=== PATIENT | female | born 2000 | race Caucasian/White ===

== ENCOUNTER 2019-06-17 12:01 | Emergency (ER) | payer OTHER ==
[2019-06-17] MEDS ORDERED: BENADRYL 50 MG/ML IV ONE (12:10)
[2019-06-17] MEDS ORDERED: TORAdol 30 mg Injection IV ONE (12:10)
[2019-06-17] MEDS ORDERED: Pepcid 20 MG VIAL IV ONE ×2 (12:10→12:32)
[2019-06-17] MEDS ORDERED: Sodium Chloride 0.9% 1000 ML 1,000 ML IV STA (12:10)
--- NOTE | 2019-06-17 12:24 | ERPHSYRPT ---
- History of Present Illness Time Seen by Provider: 06/17/19 12:10 Historian: patient Exam Limitations: no limitations Patient Subjective Stated Complaint: pt here for abd pain lower, was dx with colitis on sat. and was given antibotics, but has notgotten them filled Triage Nursing Assessment: pt alert, resp easy, skin w/d/p. abd soft with bs, no edema, moves all ext well Physician History: Patient was diagnosed with colitis two days ago as she was evaluated at [facility] in [place], [place] with sudden onset abdominal pain. the patient was discharged in the evening of 06/16/2019, then woke up at approximately 9 AM on with sudden onset of lower abdominal pain. It radiates from right to left lower abdomen with no specific quadrant localized. She was prescribed antibiotics from her hospital stay, but she has not started them. Timing/Duration: day(s) (2), sudden, worse (3 hours prior to coming into the emergency department) Quality: cramping Abdominal Pain Onset Location: generalized abdomen Pain Radiation: RLQ, LLQ Severity of Pain-Max: severe Severity of Pain-Current: severe Modifying Factors: Improves With: nothing Associated Symptoms: nausea, vomiting, No back, No chest pain, No diaphoresis, No diarrhea, No fever/chills, No fatigue, No headache, No heartburn, No loss of appetite, No neck pain, No rash, No shortness of breath, No syncope, No weakness Previous symptoms: same symptoms as today, recent hospitalization (06/15/2019-05/2019 at [facility]), recently treated (IV antibiotics) Allergies/Adverse Reactions: cefdinir [From [employer]] Allergy (Verified 06/17/19 12:14) Home Medications: Amitriptyline HCl 10 mg [Elavil 10 mg] 10 mg DAILY 06/17/19 [History] Sertraline HCl [Zoloft] 100 mg PO DAILY 06/17/19 [History] Hx Tetanus, Diphtheria Vaccination/Date Given: Yes Hx Influenza Vaccination/Date Given: No Hx Pneumococcal Vaccination/Date Given: No Immunizations Up to Date: Yes - Review of Systems Constitutional: No Fever, No Chills, No Fatigue Eyes: No Eye Pain, No Vision Changes Ears, Nose, & Throat: No Mouth Swelling, No Painful Swallowing Respiratory: No Cough, No Dyspnea Cardiac: No Chest Pain, No Palpitations, No Syncope Abdominal/Gastrointestinal: Abdominal Pain, Nausea, Vomiting, No Diarrhea, No Hematemesis, No Hematochezia, No Melena Genitourinary Symptoms: No Dysuria, No Frequency, No Hematuria, No Flank Pain Musculoskeletal: No Back Pain, No Neck Pain, No Myalgias Skin: No Pruritis, No Rash Neurological: No Focal Weakness, No Parasthesia Psychological: No Anxiety Endocrine: No Excessive Sweating Hematologic/Lymphatic: No Easy Bleeding, No Easy Bruising All Other Systems: Reviewed and Negative - Past Medical History Pertinent Past Medical History: Yes Neurological History: Migraines Cardiac History: Other Respiratory History: Asthma Endocrine Medical History: No Pertinent History Musculoskeletal History: Other History: Other Other Medical History: ANEMIA, HX LBP - Past Surgical History Past Surgical History: Yes Genitourinary: Kidney Surgery Musculoskeletal: Orthopedic Surgery Other Surgical History: FOOT SURGERY,kidney reflux surg,knee - Social History Smoking Status: Current every day smoker Exposure to second hand smoke: Yes Drug Use: none Patient Lives Alone: No - Female History Hx Last Menstrual Period: 12 days ago Hx Now: No - Nursing Vital Signs Nursing Vital Signs: Initial Vital Signs Temperature 98.1 F 06/17/19 12:08 Pulse Rate 65 06/17/19 12:08 Respiratory Rate 16 06/17/19 12:08 Blood Pressure 131/71 06/17/19 12:08 O2 Sat by Pulse Oximetry 98 06/17/19 12:08 Pain Scale Pain Intensity 4 - Physical Exam General Appearance: no apparent distress, alert Eye Exam: PERRL/EOMI, eyes nml inspection, No scleral icterus, No pale conjunctivae Ears, Nose, Throat Exam: pharynx normal, moist mucous membranes Neck Exam: normal inspection, non-tender, supple, full range of motion, No meningismus, No Brudzinski, No limited range of motion, No lymphadenopathy Respiratory Exam: normal breath sounds, lungs clear, airway intact, No chest tenderness, No respiratory distress, No diminished breath sounds, No accessory muscle use, No crackles/rales, No rhonchi, No wheezing, No stridor, No pleural rub Cardiovascular Exam: regular rate/rhythm, normal heart sounds, normal peripheral pulses, capillary refill <2 sec Gastrointestinal/Abdomen Exam: soft, normal bowel sounds, No tenderness, No distention, No mass, No guarding, No ecchymosis, No rebound Pelvic Exam: normal external exam, other (chaperoned by Yudy Black RN), No adnexal tenderness, No adnexal mass, No mass, No cervical motion tenderness, No vaginal bleeding, No uterine tenderness, No vaginal discharge Rectal Exam: normal exam, normal rectal tone, No hemorrhoids Back Exam: normal inspection, normal range of motion, No CVA tenderness, No vertebral tenderness, No rash Extremity Exam: normal inspection, normal range of motion, pelvis stable, No contusions, No calf tenderness, No antwan's sign, No swelling Neurologic Exam: alert, oriented x 3, cooperative, cloud engineer II-XII nml as tested, normal mood/affect, sensation nml, No motor deficits, No sensory deficit Skin Exam: normal color, warm, dry, No rash, No petechiae, No jaundice, No cyanosis Lymphatic Exam: No inguinal node tender (L), No inguinal node tender (R) SpO2 Interpretation: normal SpO2: 98 O2 Delivery: Room Air - Course Nursing assessment & vital signs reviewed: Yes - Radiology Ultrasound Exam Pelvis Ultrasound: Other (per radiologist interpretation:beers again and everted today measuring 5.6 x 2.4 x 3.1 cm. No focal solid//testicular mass. Endometrial stripe measures 1.8 mm. No endometrial cavity mass or fluid collection. Right ovary measures 3.3 x 1.6 x 2.6 cm in the left measures 2.2 x 2.2 x 2.1 cm. Again normal color perfusion and follicular cyst bilaterally. Tiny cul-de- sac fluid present the physiologic from rupture/leaking cyst. Overall impression : Tiny cul-de-sac fluid presumed physiologic. Remaining transvaginal pelvic sonogram is again negative in comparison to transvaginal ultrasound from 2018.) Ordered Tests: Active Orders 24 hr Category Date Time Status IV Insertion STAT Care 06/17/19 12:10 Active NPO (ED) STAT Care 06/17/19 12:10 Active Pelvic Exam Assist STAT Care 06/17/19 12:39 Active PELVIS TRANS VAGINAL [US] Stat Exams 06/17/19 12:39 Completed AMYLASE Stat Lab 06/17/19 12:20 Completed CBC W DIFF Stat Lab 06/17/19 12:20 Completed CMP Stat Lab 06/17/19 12:20 Completed CULTURE,URINE Stat Lab 06/17/19 13:06 Received HCG,QUALITATIVE URINE Stat Lab 06/17/19 13:06 Completed LIPASE Stat Lab 06/17/19 12:20 Completed Lactic Acid Stat Lab 06/17/19 12:27 Completed UA W/RFX UR CULTURE Stat Lab 06/17/19 13:06 Completed Wet Prep Stat Lab 06/17/19 13:40 Completed Medication Summary Discontinued Medications Generic Name Dose Route Start Last Admin Trade Name Carlos PRN Reason Stop Dose Admin Diphenhydramine HCl 50 mg 06/17/19 12:10 06/17/19 12:35 Benadryl 50 Mg/Ml IV 06/17/19 12:11 50 mg STAT ONE Administration Diphenhydramine HCl Confirm 06/17/19 12:32 Benadryl 50 Mg/Ml Administered 06/17/19 12:33 Dose 50 mg .ROUTE .STK-MED ONE Famotidine 20 mg 06/17/19 12:10 06/17/19 12:35 Pepcid 20 Mg Vial IV 06/17/19 12:11 20 mg STAT ONE Administration Famotidine Confirm 06/17/19 12:32 Pepcid 20 Mg Vial Administered 06/17/19 12:33 Dose 20 mg IV .STK-MED ONE Sodium Chloride 1,000 mls @ 999 mls/hr 06/17/19 12:10 06/17/19 12:33 Sodium Chloride 0.9% 1000 Ml IV 06/17/19 13:10 999 mls/hr .Q1H1M STA Administration Sodium Chloride Confirm 06/17/19 12:32 Sodium Chloride 0.9% 1000 Ml Administered 06/17/19 12:33 Dose 1,000 mls @ ud .ROUTE .STK-MED ONE Ketorolac Tromethamine 30 mg 06/17/19 12:10 06/17/19 12:34 Toradol 30 Mg Injection IV 06/17/19 12:11 30 mg STAT ONE Administration Ketorolac Tromethamine Confirm 06/17/19 12:32 Toradol 30 Mg Injection Administered 06/17/19 12:33 Dose 30 mg .ROUTE .STK-MED ONE Lab/Rad Data: Laboratory Result Diagrams 06/17/19 12:20 11/11/19 12:20 Laboratory Results 06/17/19 06/17/19 06/17/19 Range/Units 13:40 13:06 13:06 WBC (4.0-10.5) K/mm3 RBC (4.1-5.4) M/mm3 Hgb (12.0-16.0) gm/dl Hct (35-47) % MCV (78-100) fl MCH (26-32) pg MCHC (32-36) g/dl RDW (11.5-14.0) % Plt Count (150-450) K/mm3 MPV (6-9.5) fl Gran % (36.0-66.0) % Eos # (Auto) (0-0.5) Absolute Lymphs (auto) (1.0-4.6) Absolute Monos (auto) (0.0-1.3) Lymphocytes % (24.0-44.0) % Monocytes % (0.0-12.0) % Eosinophils % (0.00-5.0) % Basophils % (0.0-0.4) % Absolute Granulocytes (1.4-6.9) Basophils # (0-0.4) Sodium (137-145) mmol/L Potassium (3.5-5.1) mmol/L Chloride (98-107) mmol/L Carbon Dioxide (22-30) mmol/L Anion Gap (5-15) MEQ/L BUN (7-17) mg/dL Creatinine (0.52-1.04) mg/dL Estimated GFR ML/MIN Glucose (74-106) mg/dL Lactic Acid (0.4-2.0) Calcium (8.4-10.2) mg/dL Total Bilirubin (0.2-1.3) mg/dL AST (14-36) U/L ALT (0-35) U/L Alkaline Phosphatase (38-126) U/L Serum Total Protein (6.3-8.2) g/dL Albumin (3.5-5.0) g/dL Amylase (30-110) U/L Lipase (23-300) U/L Urine Color CLAUDIO (YELLOW) Urine Appearance CLOUDY (CLEAR) Urine pH 6.0 (5-6) Ur Specific [place] 1.035 (1.005-1.025) Urine Protein 30 (Negative) Urine Ketones SMALL (NEGATIVE) Urine Blood NEGATIVE (0-5) Angel/ul Urine Nitrite NEGATIVE (NEGATIVE) Urine Bilirubin SMALL (NEGATIVE) Urine Urobilinogen 2 (0-1) mg/dL Ur Leukocyte Esterase SMALL (NEGATIVE) Urine WBC (Auto) 3-5 (0-5) /HPF Urine RBC (Auto) 0-2 (0-2) /HPF U Epithel Cells (Auto) MANY (FEW) /HPF Urine Bacteria (Auto) RARE (NEGATIVE) /HPF Urine Mucus (Auto) MANY (NEGATIVE) /HPF Urine Culture Reflexed YES (NO) Urine Glucose NEGATIVE (NEGATIVE) mg/dL Urine HCG, Qual NEGATIVE (Negative) WBC (Wet Prep) Rare RBC (Wet Prep) None Seen Epi Cells (Wet Prep) Rare Bacteria (Wet Prep) Few Clue Cells (Wet Prep) None Seen Trichomonas (Wet Prep) None Seen Budding Yeast (Wet Prp) None Seen 06/17/19 06/17/19 06/17/19 Range/Units 12:27 12:20 12:20 WBC 11.2 H (4.0-10.5) K/mm3 RBC 4.29 (4.1-5.4) M/mm3 Hgb 13.1 (12.0-16.0) gm/dl Hct 39.5 (35-47) % MCV 92.1 (78-100) fl MCH 30.5 (26-32) pg MCHC 33.2 (32-36) g/dl RDW 14.2 H (11.5-14.0) % Plt Count 213 (150-450) K/mm3 MPV 11.5 H (6-9.5) fl Gran % 68.5 H (36.0-66.0) % Eos # (Auto) 0.17 (0-0.5) Absolute Lymphs (auto) 2.18 (1.0-4.6) Absolute Monos (auto) 1.17 (0.0-1.3) Lymphocytes % 19.4 L (24.0-44.0) % Monocytes % 10.4 (0.0-12.0) % Eosinophils % 1.5 (0.00-5.0) % Basophils % 0.2 (0.0-0.4) % Absolute Granulocytes 7.68 H (1.4-6.9) Basophils # 0.02 (0-0.4) Sodium 142 (137-145) mmol/L Potassium 3.5 (3.5-5.1) mmol/L Chloride 110 H (98-107) mmol/L Carbon Dioxide 22 (22-30) mmol/L Anion Gap 13.3 (5-15) MEQ/L BUN 9 (7-17) mg/dL Creatinine 0.50 L (0.52-1.04) mg/dL Estimated GFR > 60.0 ML/MIN Glucose 101 (74-106) mg/dL Lactic Acid 1.0 (0.4-2.0) Calcium 9.0 (8.4-10.2) mg/dL Total Bilirubin 0.70 (0.2-1.3) mg/dL AST 18 (14-36) U/L ALT 16 (0-35) U/L Alkaline Phosphatase 64 (38-126) U/L Serum Total Protein 6.8 (6.3-8.2) g/dL Albumin 3.8 (3.5-5.0) g/dL Amylase 55 (30-110) U/L Lipase 67 (23-300) U/L Urine Color (YELLOW) Urine Appearance (CLEAR) Urine pH (5-6) Ur Specific [place] (1.005-1.025) Urine Protein (Negative) Urine Ketones (NEGATIVE) Urine Blood (0-5) Angel/ul Urine Nitrite (NEGATIVE) Urine Bilirubin (NEGATIVE) Urine Urobilinogen (0-1) mg/dL Ur Leukocyte Esterase (NEGATIVE) Urine WBC (Auto) (0-5) /HPF Urine RBC (Auto) (0-2) /HPF U Epithel Cells (Auto) (FEW) /HPF Urine Bacteria (Auto) (NEGATIVE) /HPF Urine Mucus (Auto) (NEGATIVE) /HPF Urine Culture Reflexed (NO) Urine Glucose (NEGATIVE) mg/dL Urine HCG, Qual (Negative) WBC (Wet Prep) RBC (Wet Prep) Epi Cells (Wet Prep) Bacteria (Wet Prep) Clue Cells (Wet Prep) Trichomonas (Wet Prep) Budding Yeast (Wet Prp) - Progress Progress: improved Progress Note: 06/17/19 12:28 Reviewed medical records from [facility] from patient's admit date from 06/16/2019 through 06/17/2019. CT scan showed colitis involving the ascending, transverse, and descending colon. No free fluid or free air at this time. No signs of appendicitis, bowel shortening, or pancreatitis. The patient had increased white blood cell count at 15. Patient had improvement of oral intake with resolution of pain and she was discharged in the evening of 06/16/2019. Discharged with diagnosis of Colitis and sent prescriptions for Cipro and Flagyl. 06/17/19 13:57 Pain has significantly improved. Patient has no abdominal pain or CVA tenderness on repeat examination. Patient has no acute general surgical, gynecologic or urologic surgical issues that requires immediate specialist surgical consultation or further inpatient evaluation, monitoring and treatment. Patient will fill her medications from her hospitalization from [facility] and other symptomatic medications were sent to her pharmacy. Counseled pt/family regarding: lab results, diagnosis, need for follow-up, rad results - Departure Departure Disposition: Home Clinical Impression: Lower abdominal pain, unspecified, Colitis, Elevated blood pressure reading without diagnosis of hypertension Condition: Good Critical Care Time: No Referrals: MAX HELMS [Primary Care Provider] - 06/18/19 UCHE CAREY MD [NON-STAFF PHY W/O PRIVILEGES] - 06/20/19 ( Technical Services Coordinator for your reference) Instructions: Acute Abdomen (Belly Pain), Adult (DC), Colitis, DASH Diet Additional Instructions: Your labs did not show a cause to your abdominal pain and actually have improved from your last inpatient stay at [facility]. Your examination did not show anything new that required further specialist or surgical evaluation. Fill your medications at your pharmacy from your hospital stay and I also sent symptomatic relief medication for your pain and nausea also sent to the pharmacy also. Return immediately back to the emergency department if any worse abdominal pain, nausea vomiting, any new fevers, new back pain, new urinary symptoms, or any other concerning signs or symptoms that were not present at today's emergency room visit for immediate reevaluation in the emergency department. You were also given a medical fee clerk specialist followup resolution of your colitis. Discharge/Care Plan DAGOBERTO ALY was seen on 06/17/19 in the Emergency Room. The patient was counseled regarding Diagnosis,Lab results, Imaging studies, need for follow up and when to return to the Emergency Room. Prescriptions given: Discharge Note I have spoken with the patient and/or caregivers. I have explained the patient' s condition, diagnosis and treatment plan based on the information available to me at this time. I have answered the patient's and/or caregiver's questions and addressed any concerns. The patient and/or caregivers have as good understanding of the patient's diagnosis, condition and treatment plan as can be expected at this point. The vital signs have been stable. The patient's condition is stable and appropriate for discharge from the emergency department. The patient will pursue further outpatient evaluation with the primary care physician or other designated or consulting physician as outlined in the discharge instructions. The patient and/or caregivers are agreeable to this plan of care and follow-up instructions have been explained in detail. The patient and/or caregivers have received these instruction. The patient/and or caregivers are aware that any significant change in condition or worsening of symptoms should prompt an immediate return to this or the closest emergency department or call 911. Forms: Work/School Release Form Prescriptions: Hydrocodone/APAP 5-325 Tab^^^ [[place] 5-325 Tablet^^^] 1 tab PO Q6HPRN PRN #6 tablet MDD 6 PRN Reason: Pain Promethazine HCl 25 mg [Phenergan 25 mg] 25 mg PO Q6H PRN PRN #12 tablet PRN Reason: Nausea Etodolac 400 mg [Lodine 400 mg] 400 mg PO BID PRN PRN #20 tablet PRN Reason: Pain
[2019-06-17 12:30] LABS: Absolute Neutrophil Ct (ANC) 7.68 (1.4-6.9); BASOPHIL % 0.2 % (0.0-0.4); Basophil (Absolute #) 0.02 (0-0.4); Eosinophil % 1.5 % (0.00-5.0); Eosinophil (Absolute #) 0.17 (0-0.5); Hematocrit 39.5 % (35-47); Hemoglobin 13.1 gm/dl (12.0-16.0); Lymphocyte (Absolute #) 2.18 (1.0-4.6); Lymphocytes % 19.4 % (24.0-44.0); Mean Cell Volume 92.1 fl (78-100); Mean Corpuscular Hemoglobin 30.5 pg (26-32); Mean Corpuscular Hgb Concent. 33.2 g/dl (32-36); Mean Platelet Volume 11.5 fl (6-9.5); Monocyte (Absolute #) 1.17 (0.0-1.3); Monocytes % 10.4 % (0.0-12.0); Neutrophil % 68.5 % (36.0-66.0); Platelet Count 213 K/mm3 (150-450); Red Blood Count 4.29 M/mm3 (4.1-5.4); Red Cell Distribution Width 14.2 % (11.5-14.0); White Blood Count 11.2 K/mm3 (4.0-10.5)
[2019-06-17] MEDS ORDERED: Sodium Chloride 0.9% 1000 ML 1,000 ML ONE (12:32)
[2019-06-17] MEDS ORDERED: BENADRYL 50 MG/ML ONE (12:32)
[2019-06-17] MEDS ORDERED: TORAdol 30 mg Injection ONE (12:32)
[2019-06-17 12:40] LABS: ALBUMIN 3.8 g/dL (3.5-5.0); ALKALINE PHOSPHATASE 64 U/L (38-126); AMYLASE 55 U/L (30-110); ANION GAP 13.3 MEQ/L (5-15); BLOOD UREA NITROGEN 9 mg/dL (7-17); CHLORIDE 110 mmol/L (98-107); Carbon Dioxide 22 mmol/L (22-30); Glucose 101 mg/dL (74-106); LIPASE 67 U/L (23-300); Potassium 3.5 mmol/L (3.5-5.1); SGOT/AST 18 U/L (14-36); SGPT/ALT 16 U/L (0-35); SODIUM 142 mmol/L (137-145); Total Protein 6.8 g/dL (6.3-8.2)
[2019-06-17 13:24] LABS: Appearance CLOUDY (CLEAR); Bacteria RARE /HPF (NEGATIVE); Bilirubin SMALL (NEGATIVE); Blood NEGATIVE Ery/ul (0-5); Epithelial Cells MANY /HPF (FEW); Glucose NEGATIVE (NEGATIVE); Ketones SMALL (NEGATIVE); Leukocyte Esterase SMALL (NEGATIVE); Mucus MANY /HPF (NEGATIVE); Nitrite NEGATIVE (NEGATIVE); Protein,Urine Dip 30 (Negative); RBC 0-2 /HPF (0-2); Specific Gravity 1.035 (1.005-1.025); Urobilinogen 2 mg/dL (0-1)
--- NOTE | 2019-06-17 13:41 | XRAY ---
Indication: Lower abdomen pain. Two-dimensional transvaginal pelvic sonogram performed. Comparison: November 16, 2018. Uterus again anteverted today measuring 5.6 x 2.4 x 3.1 cm. No focal solid/cystic uterine mass. Endometrial stripe measures 1.8 mm. No endometrial cavity mass or fluid collection. Right ovary measures 3.3 x 1.6 x 2.6 cm and the left measures 2.2 x 2.2 x 2.1 cm. Again normal color perfusion and follicular cysts bilaterally. Tiny cul-de-sac fluid presumed physiologic from rupture/leaking cyst. Impression: Tiny cul-de-sac fluid presumed physiologic. Remaining transvaginal pelvic sonogram is again negative.
[2019-06-17 13:47] LABS: Bacteria Few; Clue Cells None Seen; Red Blood Cells None Seen; Trichomonas None Seen; White Blood Cells Rare; Yeast None Seen
[2019-06-17 14:26] VITALS: BP 114/73; PULSE 79; O2SAT 99
[2019-06-17 15:34] LABS: CHLAMYDIA DNA NEGATIVE; N GONORRHOEAE DNA NEGATIVE
== END 2019-06-17 14:24 | disposition home or self-care (01) ==
LOC: ED 12:01
DX: R10.31 Right lower quadrant pain (principal); R10.32 Left lower quadrant pain; K52.9 Noninfective gastroenteritis and colitis, unspecified; R03.0 Elevated blood-pressure reading, without diagnosis of hypertension
CPT/HCPCS: 36000; 36415; 76830; 80053; 81001; 82150; 83605; 83690; 84703; 85025; 87086; 87210; 87490; 87590; 96360; 96374; 96375; 99284; J1200; J1885

== ENCOUNTER 2024-12-15 13:16 | Emergency (ER) | payer MEDICAID, OTHER ==
[2024-12-15 13:53] VITALS: TEMP 97.2
[2024-12-15] MEDS ORDERED: Reglan 10 MG/2 ML ONE (14:36)
[2024-12-15] MEDS ORDERED: Hydromorphone 1 mg/ml Injection ONE (14:36)
[2024-12-15] MEDS ORDERED: Sodium Chloride 0.9% 1000 ML 1,000 ML ONE (14:37)
[2024-12-15] MEDS: Sodium Chloride 0.9% 1000 ML 1,000 ML IV STA (14:38)
[2024-12-15 14:39] LABS: Absolute Neutrophil Ct (ANC) 6.08 x10^3/uL (1.56-6.13); BASOPHIL % 0.4 % (0.1-1.2); Basophil (Absolute #) 0.04 x10^3/uL (0.01-0.08); Eosinophil % 0.2 % (0.7-5.8); Eosinophil (Absolute #) 0.02 x10^3/uL (0.04-0.36); Hematocrit 37.7 % (34.1-44.9); Hemoglobin 13.3 g/dL (11.2-15.7); IMMATURE GRAN # 0.03 x10^3u/L (0.001-0.031); IMMATURE GRAN % 0.3 % (0.001-0.429); Lymphocyte (Absolute #) 2.33 x10^3/uL (1.18-3.74); Lymphocytes % 25.3 % (19.3-51.7); Mean Cell Volume 86.5 fL (79.4-94.8); Mean Corpuscular Hemoglobin 30.5 pg (25.6-32.2); Mean Corpuscular Hgb Concent. 35.3 g/dL (32.2-35.5); Mean Platelet Volume 11.6 fL (9.4-12.3); Monocytes % 7.6 % (4.7-12.5); Neutrophil % 66.2 % (34.0-71.1); Platelet Count 243 x10^3/uL (182-369); Red Blood Count 4.36 x10^6/uL (3.93-5.22); Red Cell Distribution Width 12.4 % (11.7-14.4); White Blood Count 9.2 x10^3/uL (3.98-10.04)
[2024-12-15] MEDS: Reglan 10 MG/2 ML IV ONE (14:39)
[2024-12-15] MEDS: Hydromorphone 1 mg/ml Injection IV ONE (14:39)
[2024-12-15 14:50] LABS: ALBUMIN 4.3 g/dL (3.5-5.0); ANION GAP 16.2 MEQ/L (5-15); BILIRUBIN,TOTAL 0.8 mg/dL (0.2-1.3); Calcium 9.3 mg/dL (8.4-10.2); Creatinine 1 0.46 mg/dL (0.52-1.04); EST GLOMERULAR FILTRATION RATE 136.1 ML/MIN; Total Protein 7.1 g/dL (6.3-8.2)
--- NOTE | 2024-12-15 16:39 | XRAY ---
CLINICAL HISTORY: abdominal pain COMPARISON: No prior studies available for comparison. TECHNIQUE: CT of the abdomen and pelvis was performed with contrast, with the following protocol: axial images, and reconstructed coronal and sagittal images. 80 ml sivoue intravenous contrast was administered. One of the following dose reduction techniques was utilized for this exam: Automated exposure control, adjustment of the mA and/or kV according to patient size, and use of iterative reconstruction. CTDI: 4.9 DLP: 505.98 FINDINGS: Abdomen: Liver: Normal in size, shape, and density. No focal lesions, cysts, or masses were identified. Hepatic vasculature and biliary ducts are unremarkable. Gallbladder and Biliary System: The gallbladder is normal in size and shape. No wall thickening, pericholecystic fluid, or gallstones were identified. The common bile duct is normal in caliber without dilation. Pancreas: The pancreatic head, body, and tail are visualized and appear normal in size and density. No pancreatic masses or calcifications were noted. The pancreatic duct is not dilated. Spleen: Normal in size, shape, and density. No splenic lesions or masses were identified. Appendix: The appendix is normal in size without darcy-appendiceal fat stranding and without an appendicolith. No evidence of appendiceal abscess or perforation. Kidneys and Adrenal Glands: Both kidneys are normal in size, shape, and position. Cortical thickness is within normal limits. No renal calculi or hydronephrosis. Adrenal glands are unremarkable with no evidence of masses or hyperplasia. Pelvis: Urinary Bladder: Normal in contour and wall thickness. No intraluminal lesions identified. Uterus: Normal in size and contour. No masses or abnormal thickening. Ovaries: Slightly prominent yet no masses Peritoneal and Retroperitoneal Structures: No free fluid or abnormal fluid collections were identified within the abdomen or pelvis. No lymphadenopathy was noted. Bowel: mild mural thickening along the descending and splenic flexure colon with no stranding or localized fluid collection small diverticula along the descending colon with no signs of inflammation. The visualized bowel loops are normal in caliber with no obstruction. Bones and Soft Tissues: Pelvic bones and soft tissues are unremarkable. No fractures or abnormal masses were identified. Left gluteal subcutaneus dense soft tissue clacification is seen, probably changes due to previous local injection. IMPRESSION: 1. No evidence of acute intra-abdominal pathology. 2. Mild mural thickening along the descending colon and splenic flexure colon, with no pericolic stranding or localized fluid collection, could suggest mild colitis. 3. Left gluteal subcutaneus dense soft tissue clacification, probably changes due to previous local injection, for clinical correlation. Electronically Signed by: Darius Webb MD. (12/15/2024 16:35:30 EDT)
[2024-12-15 17:04] VITALS: BP 115/65; PULSE 91; RESP 18; O2SAT 100
--- NOTE | 2024-12-15 17:17 | ERPHSYRPT ---
- History of Present Illness Historian: patient Patient Subjective Stated Complaint: PT HERE FOR PAIN WITH NAUSEA AND VOMITING. PT WAS RECENTLY SEEN AT [facility] AND ADMITTED AT [facility]. SHE WAS DX WITH COLITIS. Triage Nursing Assessment: PT ALERT,ANXOUIS AT TIMES. CRYING AT TIMES. ARRIVED PER WC, RESP EASY, SKIN W/D/P. PAIN AND TENDERNESS TO LEFT SIDE OF ABD. BS X4, DENIES ANY DIFFICULTY WITH B/B, MOVES ALL EXT WELL, NO EDEMA NOTED Physician History: Patient is been having abdominal pain for about 7 to 10 days. She went first to another ER was diagnosed with gastroenteritis given Zofran and discharged. She had pain again in a day or 2 and then went to [facility] in their ER. They ended up admitting her for a few days. She has had 2 CTs which have both been negative of her abdomen ultrasounds of her abdomen and pelvis she has had an upper and lower endoscopy. None of these things turned up anything. She has not had any fever or chills. She think she may be a little dehydrated. The pain is sharp and localized in the splenic flexure area. It comes and goes. She does not have any flank pain. She does not have any dysuria.She says the pain becomes debilitating at times. She is anxious and worried about it. Quality: aching, sharpness, stabbing Pain Radiation: no radiation Allergies/Adverse Reactions: cefdinir [From Omnicef] Allergy (Verified 12/15/24 13:36) Home Medications: Amitriptyline HCl 10 mg [Elavil 10 mg] 10 mg DAILY 06/17/19 [History] Sertraline HCl [Zoloft] 100 mg PO DAILY 06/17/19 [History] Hx Tetanus, Diphtheria Vaccination/Date Given: No Hx Influenza Vaccination/Date Given: No Hx Pneumococcal Vaccination/Date Given: No Immunizations Up to Date: Yes Travel Risk - International Travel Have you traveled outside of the country in past 3 weeks: No - Emerging Infectious Disease Are you exhibiting symptoms associated with any current EIDs: No - Review of Systems Constitutional: No Symptoms Eyes: No Symptoms Respiratory: No Symptoms Cardiac: No Symptoms Genitourinary Symptoms: No Symptoms Musculoskeletal: No Symptoms Skin: No Symptoms Neurological: No Symptoms All Other Systems: Reviewed and Negative - Past Medical History Pertinent Past Medical History: Yes Neurological History: Migraines Cardiac History: Other Respiratory History: Asthma Endocrine Medical History: No Pertinent History Musculoskeletal History: Other History: Other Other Medical History: Anemia, LBP - Past Surgical History Past Surgical History: Yes Genitourinary: Kidney Surgery Musculoskeletal: Orthopedic Surgery Other Surgical History: FOOT SURGERY,kidney reflux surg,knee, - Female History Hx Last Menstrual Period: MONDAY Hx Now: No - Social History Smoking Status: Current every day smoker Exposure to second hand smoke: Yes Drug Use: none - Social Determinants of Health Will the patient participate in the screening: Declined to provide - Nursing Vital Signs Nursing Vital Signs: Initial Vital Signs Blood Pressure 114/75 12/15/24 13:00 Pain Scale Pain Intensity 4 - Physical Exam General Appearance: no apparent distress Eye Exam: PERRL/EOMI Ears, Nose, Throat Exam: normal ENT inspection Respiratory Exam: normal breath sounds, lungs clear, No chest tenderness, No respiratory distress Cardiovascular Exam: regular rate/rhythm, normal heart sounds Gastrointestinal/Abdomen Exam: soft, normal bowel sounds, No tenderness, No distention, No mass, No guarding Pelvic Exam: not done Back Exam: normal inspection, normal range of motion Extremity Exam: normal inspection, normal range of motion Neurologic Exam: alert, oriented x 3, cooperative Skin Exam: normal color SpO2: 100 - Course Nursing assessment & vital signs reviewed: Yes Ordered Tests: Active Orders 24 hr Category Date Time Status ABDOMEN AND PELVIS W CONTRAST [CT] Stat Exams 12/15/24 15:24 Completed CBC W DIFF Stat Lab 12/15/24 14:30 Completed CMP Stat Lab 12/15/24 14:30 Completed LIPASE Stat Lab 12/15/24 14:30 Completed Lactic Acid Stat Lab 12/15/24 14:33 Completed Medication Summary Discontinued Medications Generic Name Dose Route Start Last Admin Trade Name Freq PRN Reason Stop Dose Admin Hydromorphone HCl 1 mg 12/15/24 14:16 12/15/24 14:39 Hydromorphone 1 Mg/1ml Inj IV 12/15/24 14:17 1 mg STAT ONE Administration Hydromorphone HCl Confirm 12/15/24 14:36 Hydromorphone 1 Mg/1ml Inj Administered 12/15/24 14:37 Dose 1 mg .ROUTE .STK-MED ONE Sodium Chloride 1,000 mls @ 999 mls/hr 12/15/24 14:16 12/15/24 15:38 Sodium Chloride 0.9% 1000 Ml IV 12/15/24 15:16 Infused .Q1H1M STA Infusion Sodium Chloride Confirm 12/15/24 14:37 Sodium Chloride 0.9% 1000 Ml Administered 12/15/24 14:38 Dose 1,000 mls @ ud .ROUTE .STK-MED ONE Metoclopramide HCl 10 mg 12/15/24 14:16 12/15/24 14:39 Metoclopramide Hcl 10 Mg/2 Ml Vial IV 12/15/24 14:17 10 mg STAT ONE Administration Metoclopramide HCl Confirm 12/15/24 14:36 Metoclopramide Hcl 10 Mg/2 Ml Vial Administered 12/15/24 14:37 Dose 10 mg .ROUTE .STK-MED ONE Lab/Rad Data: Laboratory Result Diagrams 12/15/24 14:30 12/15/24 14:30 Laboratory Results 12/15/24 12/15/24 12/15/24 Range/Units 14:33 14:30 14:30 WBC 9.2 (3.98-10.04) x10^3/uL RBC 4.36 (3.93-5.22) x10^6/uL Hgb 13.3 (11.2-15.7) g/dL Hct 37.7 (34.1-44.9) % MCV 86.5 (79.4-94.8) fL MCH 30.5 (25.6-32.2) pg MCHC 35.3 (32.2-35.5) g/dL RDW 12.4 (11.7-14.4) % Plt Count 243 (182-369) x10^3/uL MPV 11.6 (9.4-12.3) fL Gran % 66.2 (34.0-71.1) % Immature Gran % (Auto) 0.3 (0.001-0.429) % Nucleat RBC Rel Count 0.0 (0.00-0.2) % Eos # (Auto) 0.02 L (0.04-0.36) x10^3/uL Immature Gran # (Auto) 0.03 (0.001-0.031) x10^3u/L Absolute Lymphs (auto) 2.33 (1.18-3.74) x10^3/uL Absolute Monos (auto) 0.70 (0.24-0.86) x10^3/uL Absolute Nucleated RBC 0.00 (0.00-0.012) x10^3u/L Lymphocytes % 25.3 (19.3-51.7) % Monocytes % 7.6 (4.7-12.5) % Eosinophils % 0.2 L (0.7-5.8) % Basophils % 0.4 (0.1-1.2) % Absolute Granulocytes 6.08 (1.56-6.13) x10^3/uL Basophils # 0.04 (0.01-0.08) x10^3/uL Sodium 137 (135-145) mmol/L Potassium 3.0 L* (3.5-5.1) mmol/L Chloride 101 (98-107) mmol/L Carbon Dioxide 23 (22-30) mmol/L Anion Gap 16.2 H (5-15) MEQ/L BUN 4 L (7-17) mg/dL Creatinine 0.46 L (0.52-1.04) mg/dL Estimated GFR 136.1 ML/MIN Glucose 98 (74-106) mg/dL Lactic Acid 0.9 (0.4-2.0) Calcium 9.3 (8.4-10.2) mg/dL Total Bilirubin 0.80 (0.2-1.3) mg/dL AST 31 (14-36) U/L ALT 16 (0-35) U/L Alkaline Phosphatase 55 (38-126) U/L Serum Total Protein 7.1 (6.3-8.2) g/dL Albumin 4.3 (3.5-5.0) g/dL Lipase 745 H (23-300) U/L - Progress Progress: improved Progress Note: Patient was stable throughout stay. #1 on the differential is hyperemesisSecondary to cyclic vomiting syndrome. Also would be pancreatitis cholecystitis gastroenteritis, enteritis, gastritis. Her workup was essentially negative except for elevated lipase is around 750. I went ahead and got another scan on her. It did not show anything acute. I going to think that this patient has cyclic vomiting syndrome.They did note that her symptoms improve when she gets in a warm bathtub or warm shower.In any event she has medications that she needs right now. I am going to discharge her to home and she said she will follow-up with her primary doctor. 12/15/24 17:15 - Departure Departure Disposition: Home Clinical Impression: Colitis, Abdominal pain Condition: Stable Critical Care Time: No Referrals: [facility] [Primary Care Provider, [facility]] - Follow up/PCP as directed Instructions: Severe Abdominal Pain, Adult (DC)
== END 2024-12-15 17:50 | disposition home or self-care (01) ==
LOC: ED 13:16
DX: K52.9 Noninfective gastroenteritis and colitis, unspecified (principal); R10.9 Unspecified abdominal pain; Z79.899 Other long term (current) drug therapy; Z72.0 Tobacco use
CPT/HCPCS: 36415; 74177; 80053; 83605; 83690; 85025; 96361; 96374; 96375; 99284; 99285; J1171